=== PATIENT | male | born 1960 | race Caucasian/White ===

== ENCOUNTER 2024-06-12 06:50 | Day surgery (SDC) | payer BC ==
[~2024-06-12] VITALS: Ht 180.3 cm; Wt 94.1 kg
[2024-06-12] VITALS (11 sets, daily range): BP systolic 123–149; BP diastolic 60–79; PULSE 54–64; RESP 12–17; TEMP 97.6; O2SAT 96–99
[2024-06-12] MEDS ORDERED: sodium bicarbonate 1meq/ml syr 150 ML in dextrose 5%-water 1,000 ML IV ONE (07:30)
[2024-06-12] MEDS ORDERED: VALS320T17 PO (07:47)
[2024-06-12] MEDS ORDERED: METO-411 PO (07:47)
[2024-06-12 07:51] LABS: BASOPHILS % (AUTO) 0.6 % (0-1); EOSINOPHILS # (AUTO) 0.1 X10'3 (0-0.9); EOSINOPHILS % (AUTO) 0.9 % (0-6); HEMATOCRIT 41.7 % (42.0-52.0); HEMOGLOBIN 14.9 g/dl (14.0-17.9); LYMPHOCYTES # (AUTO) 1.7 X10'3 (1.1-4.8); LYMPHOCYTES % (AUTO) 27.2 % (21-51); MEAN CORPUSCULAR HEMOGLOBIN 33.1 PG (27.0-31.0); MEAN CORPUSCULAR HGB CONC 35.7 g/dL (33.0-36.5); MEAN CORPUSCULAR VOLUME 92.8 FL (78-98); MEAN PLATELET VOLUME 6.7 FL (7.4-10.4); MONOCYTES # (AUTO) 0.5 X10'3 (0-0.9); MONOCYTES % (AUTO) 8.8 % (2-12); NEUTROPHILS # (AUTO) 3.9 X10'3 (1.8-7.7); NEUTROPHILS % (AUTO) 62.5 % (42-75); PLATELET COUNT 189 X10'3 (140-440); RED BLOOD COUNT 4.49 X10'6 (4.70-6.10); RED CELL DISTRIBUTION WIDTH 13.9 % (11.5-14.5); WHITE BLOOD COUNT 6.2 X10'3 (4.5-11.0)
[2024-06-12] MEDS: normal saline 1,000 ML IV SCH (08:01)
[2024-06-12] MEDS: diphenhydrAMINE 25mg capsule PO PRN (08:02)
[2024-06-12 08:06] LABS: PROTHROMBIN TIME 10.8 SECONDS (9.0-12.0)
[2024-06-12] MEDS ORDERED: TADA20TA43 PO (08:06)
[2024-06-12] MEDS ORDERED: LEVO150T61 PO (08:06)
[2024-06-12] MEDS ORDERED: iohexol 350 MG/ML 50ML vial IV ONE (08:41)
[2024-06-12] MEDS ORDERED: LIDOcaine 1% (10mg/ml) 2ml vial ONE ×3 (08:41→09:44)
[2024-06-12] MEDS ORDERED: verapamil 2.5 mg/ml inj IV ONE (08:41)
[2024-06-12] MEDS ORDERED: heparin 1,000unit/ml 10ml vial 10 ML ONE (08:41)
[2024-06-12] MEDS ORDERED: iohexol 350MG/ML 100ml bottle IV ONE ×2 (08:41→10:22)
[2024-06-12] MEDS ORDERED: midazolam 1 mg/ML 2ml injection ONE ×3 (08:41→10:33)
[2024-06-12] MEDS ORDERED: fentaNYL/PF 50MCG/1 ML 2ML syringe ONE (08:41)
[2024-06-12] MEDS ORDERED: nitroGLYCERIN 500mcg/5mL D5W 5 ML IV ONE (08:42)
[2024-06-12 08:52] LABS: ALBUMIN 4.1 G/DL (3.4-5.0); ANION GAP 9 (8-16); BLOOD UREA NITROGEN 15 MG/DL (7-18); BUN/CREATININE RATIO 15.5 (10.0-20.0); CALCIUM 9.2 MG/DL (8.5-10.1); CHLORIDE 106 MMOL/L (99-107); CREATININE 0.97 MG/DL (0.60-1.10); GLUCOSE 93 MG/DL (70-104); POTASSIUM 3.8 MMOL/L (3.5-5.1); SODIUM 145 MMOL/L (135-145); TOTAL CARBON DIOXIDE 30.1 MMOL/L (24-32); eCRCL 83 ML/MIN; eGFR 78 ML/MIN
[2024-06-12] MEDS ORDERED: LIDOcaine 1% 30ml preserv. free vial ONE (10:21)
[2024-06-12] MEDS ORDERED: phenylephrine 10mg/ml inj. ONE (10:24)
[2024-06-12] MEDS ORDERED: atropine 0.1mg/ml 10ml syringe ONE (10:34)
== END 2024-06-12 15:00 | disposition home or self-care (01) ==
LOC: SSTAY O 06:50
PROVIDERS: ATTEND Internal Medicine Cardiovascular Disease
DX: R94.39 Abnormal result of other cardiovascular function study (principal); I25.10 Atherosclerotic heart disease of native coronary artery without angina pectoris; I35.0 Nonrheumatic aortic (valve) stenosis; I25.2 Old myocardial infarction; E78.5 Hyperlipidemia, unspecified; I48.91 Unspecified atrial fibrillation; K21.9 Gastro-esophageal reflux disease without esophagitis; I10 Essential (primary) hypertension; M19.90 Unspecified osteoarthritis, unspecified site; Z79.899 Other long term (current) drug therapy; Z79.01 Long term (current) use of anticoagulants; Z87.891 Personal history of nicotine dependence; Z88.1 Allergy status to other antibiotic agents
CPT/HCPCS: 36415; 80048; 83735; 85025; 85610; 92920; 93005; 93460; 99152; 99153; C1725; J1644; J2003; J2250; J2371; J3010; J3490; J7030; Q9967; A6258; A6402; C1751; C1760; C1769; C1887; C1894; J0461; J2370